=== PATIENT | male | born 1965 | race African-American/Black ===

== ENCOUNTER 2023-03-28 19:57 | Emergency (ER) | payer OTHER ==
[~2023-03-28] VITALS: Ht 172.7 cm; Wt 84.0 kg
[2023-03-28 20:54] VITALS: O2SAT 98
[2023-03-28] MEDS ORDERED: KETOROLAC 60MG/2ML VIAL IM ONE (21:15)
[2023-03-28] MEDS ORDERED: ACETAMINOPHEN 325MG TABLET PO ONE (21:15)
[2023-03-28] MEDS ORDERED: LIDOCAINE 5% PATCH TOP SCH (23:30)
[2023-03-29] MEDS ORDERED: NAPR220C61 MT (00:26)
[2023-03-29 01:50] VITALS: BP 132/68; PULSE 78; RESP 18; TEMP 98.7
== END 2023-03-29 02:00 | disposition home or self-care (01) ==
LOC: ER 19:57
DX: S89.92XA Unspecified injury of left lower leg, initial encounter (principal); I10 Essential (primary) hypertension; J45.909 Unspecified asthma, uncomplicated; Z98.890 Other specified postprocedural states; X58.XXXA Exposure to other specified factors, initial encounter; Y30.XXXA Falling, jumping or pushed from a high place, undetermined intent, initial encounter; Y92.89 Other specified places as the place of occurrence of the external cause; Y99.8 Other external cause status
CPT/HCPCS: 73590; 73600; 73620; 29515; 96372; 99284; J1885; Z7610